=== PATIENT | male | born 1995 | race Caucasian/White ===

== ENCOUNTER 2020-04-28 10:12 | Outpatient (REF) | payer OTHER, SELFPAY ==
--- NOTE | 2020-04-28 10:25 | XR_ITS ---
EXAMINATION: XR SHOULDER, LEFT CLINICAL INFORMATION: Pain. COMPARISON: None TECHNIQUE: Three views of the left shoulder. FINDINGS: No fracture. Glenohumeral and acromioclavicular alignment is anatomic with normal joint space. 5 mm sclerotic focus in the proximal humeral metaphysis. No abnormal soft tissue calcifications. IMPRESSION: No acute osseous abnormality. Nonspecific nonaggressive-appearing 5 mm sclerotic focus in the proximal humeral metaphysis.
== END 2020-04-28 10:13 | disposition home or self-care (01) ==
LOC: HO.XRAY 10:12
PROVIDERS: PCP Internal Medicine; Referring Provider Internal Medicine; Visit Provider Orthopaedic Surgery
DX: M25.312 Other instability, left shoulder (principal); M25.311 Other instability, right shoulder
CPT/HCPCS: 73030

== ENCOUNTER 2021-04-13 10:24 | Outpatient (REF) | payer OTHER, SELFPAY ==
[2021-04-13 10:27] LABS: MANUAL DIFF FLAG NO
[2021-04-13 10:51] LABS: Basophils Percent Auto 0.4 % (0-2); Eosinophils Absolute Auto 0.3 X10*3/uL (0.0-0.4); Eosinophils Percent Auto 4.1 % (0-4); Hemoglobin 14.7 g/dl (14.0-18.0); Imm Gran Abs Auto 0.01 X10*3/uL (0.00-0.03); Imm Gran Pct Auto 0.1 % (0.0-0.4); Lymphocytes Absolute Auto 3.5 X10*3/uL (1.2-4.9); Lymphocytes Percent Auto 47.3 % (20-40); Mean Corpuscular HGB Conc 33.4 g/dl (31.0-36.0); Mean Corpuscular Hemoglobin 30.1 pg (27.0-33.0); Mean Platelet Volume 10.2 fL (9.4-12.4); Monocytes Absolute Auto 0.5 X10*3/uL (0.1-1.2); Monocytes Percent Auto 6.9 % (2-11); Neutrophils Absolute Auto 3.1 X10*3/uL (2.0-8.3); Neutrophils Percent Auto 41.2 % (45-73); Platelet Count 229 X10*3/uL (160-400); Red Blood Count 4.89 X10*6/uL (4.60-5.80); Red Cell Distribution Width 12.2 % (11.0-16.0); White Blood Count 7.5 X10*3/uL (4.8-10.8)
[2021-04-13 11:00] LABS: Appearance Urine CLEAR; Color Urine YELLOW; Glucose Urine UA NEG (NEG); Leukocyte Esterase Urine NEG (NEG); Nitrite Urine NEG (NEG); Urine Blood NEG (NEG); Urine Ketones NEG (NEG); Urine Protein NEG (NEG-TRACE)
[2021-04-13 11:25] LABS: Alanine Aminotransferase 20 U/L (0-40); Albumin Level 4.6 g/dL (3.5-5.0); Alkaline Phosphatase 38 U/L (39-117); Anion Gap 15 (12-20); Aspartate Amino Transferase 17 U/L (5-37); Bilirubin Total 0.6 mg/dL (0.0-1.0); Blood Urea Nitrogen 14 mg/dL (9-16); Calcium 9.7 mg/dL (8.4-10.2); Carbon Dioxide 29 mmol/L (22-29); Chloride 102 mmol/L (96-108); Cholesterol 171 mg/dL; Estimated Glomerular Filt Rate > 60; Glucose Fasting 91 mg/dL (60-99); HDL Cholesterol 50 mg/dL; LDL Cholesterol Calculated 100 mg/dl; Potassium 3.8 mmol/L (3.3-5.1); Sodium 142 mmol/L (135-145); Total Protein 7.4 g/dL (6.5-8.0); Triglycerides 105 mg/dL
== END 2021-04-13 10:25 | disposition home or self-care (01) ==
LOC: HO.LNP 10:24
PROVIDERS: Visit Provider Internal Medicine
DX: Z00.00 Encounter for general adult medical examination without abnormal findings (principal); D72.820 Lymphocytosis (symptomatic)
CPT/HCPCS: 80053; 80061; 81003; 85025

== ENCOUNTER 2022-06-24 11:55 | Outpatient (REF) | payer OTHER, SELFPAY ==
[2022-06-24 13:53] LABS: Blood Urea Nitrogen 11 mg/dL (9-16); Estimated Glomerular Filt Rate > 60
== END 2022-06-24 11:56 | disposition home or self-care (01) ==
LOC: HO.LNP 11:55
PROVIDERS: Visit Provider Internal Medicine
DX: R79.9 Abnormal finding of blood chemistry, unspecified (principal)
CPT/HCPCS: 82565; 84520

== ENCOUNTER 2023-11-08 10:36 | Day surgery (SDC) | payer OTHER, SELFPAY ==
[2023-11-06 14:13] VITALS: BMI 21.0
--- NOTE | 2023-11-07 10:05 | HO.ANESPROP2 ---
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 Father No problems noted. 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 Allergies Allergy/AdvReac Type Severity Reaction Status Date / Time Sulfa (Sulfonamide Allergy Mild HIVES Unverified 04/02/20 19:05 Antibiotics) [SULFA (SULFONAMIDE ANTIBIOTICS)] gluten Allergy gluten Verified 04/28/20 10:35 shellfish derived Allergy unknown Verified 04/28/20 10:35 Omeprazole Allergy Unknown SOB Uncoded 03/01/19 00:00 sulfa Allergy Unknown hives Uncoded 03/01/19 00:00 Home Medications ?Medication ?Instructions ?Recorded ?Confirmed ?Last Taken ?Type budesonide 3 mg 3 mg PO Q OTHER DAY 11/06/23 11/06/23 Unknown History capsule,delayed,extended release omeprazole 20 mg capsule,delayed 20 mg PO DAILY 11/06/23 11/06/23 Unknown History release Exam Height,Weight and Vital Signs: Height 6 ft Weight 70.307 kg Assessment and Plan Assessment Anesthesia Assessment: Chart Reviewed Documented by User: Jame San MD 11/08/23 11:35 [facility] Past Medical History Medical History (Updated 11/06/23 @ 14:02 by Chanel Boogie RN) Eosinophilic esophagitis Asthma Family History Family History (Updated 04/28/20 @ 10:36 by Kendy Jama CMA) Mother No problems noted. Father No problems noted. Family history of problems with anesthesia: No Surgical History Surgical History (Updated 04/28/20 @ 10:35 by Kendy Jama CMA) H/O removal of cyst [place] teeth extracted History of Problems with Anesthesia: No Social History Social History (Updated 04/28/20 @ 10:36 by Kendy Jama CMA) Patient Tobacco Use Status: Former Tobacco user Quit Date: > 1 year Tobacco use type: Cigarette Use of substances other than those prescribed or required for medical reasons: No Are you DNR?: No Advance Directives: No Advance Directives Information Provided: Yes Recently lost weight without trying: No How much weight loss: 2-13 pounds Nutrition Risks: No Nutritional Risk Poor oral hygiene: No 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 Allergies Allergy/AdvReac Type Severity Reaction Status Date / Time Sulfa (Sulfonamide Allergy Mild HIVES Unverified 04/02/20 19:05 Antibiotics) [SULFA (SULFONAMIDE ANTIBIOTICS)] gluten Allergy gluten Verified 04/28/20 10:35 shellfish derived Allergy unknown Verified 04/28/20 10:35 Omeprazole Allergy Unknown SOB Uncoded 03/01/19 00:00 sulfa Allergy Unknown hives Uncoded 03/01/19 00:00 Home Medications ?Medication ?Instructions ?Recorded ?Confirmed ?Last Taken ?Type budesonide 3 mg 3 mg PO Q OTHER DAY 11/06/23 11/06/23 Unknown History capsule,delayed,extended release omeprazole 20 mg capsule,delayed 20 mg PO DAILY 11/06/23 11/06/23 Unknown History release Exam Airway Mallampati Class: I TM Dist: >3cm Neck ROM: Full Loose/Missing/Broken Teeth: No Heart: ok Lungs: ok Assessment and Plan Assessment Anesthesia Assessment: Anesthesia Plan Discussed Final Anesthetic Review Family History of Problems with Anesthesia: No History of Problems with Anesthesia: No NPO: Yes ASA Class: II Final Preanesthetic Review: No Changes in Pt Med Stat, Meds/Allgs Chart Reviewed, Consent Obtained/Reviewed and Anes Risks/Benef Reviewed Patient Risk: Low Procedure Risk: Intermediate Anesthetic Plan Anesthetic Plan: Agree w/ Assess. and Plan and TIVA Disposition: Standard PACU
[2023-11-08 11:03] VITALS: BP 116/83; PULSE 67; RESP 18; TEMP 36.6; O2SAT 98
[2023-11-08] MEDS: Lactated Ringers 1,000 ML 100 ML IVCONT (11:24)
[2023-11-08 11:59] VITALS: BP 115/77; PULSE 79; RESP 18; TEMP 36.2; O2SAT 100
--- NOTE | 2023-11-08 12:08 | PM.OP ---
Brief Operative Note Date of Service: 11/08/23 Pre-op diagnosis: GERD, Hx of EoE Post-op diagnosis: other (Same, Small hiatal hernia) Procedure: EGD with biopsies Surgeon: Darron Weathers MD Anesthesia: MAC Was an Rehab Director used for this Procedure?: No Estimated blood loss (mL): 2.0 Pathology: other (A. Descending duodenum B. Esophagus 20-25cm C. EG Junction at 39cm) Condition: stable Disposition: PACU
[2023-11-08 12:32] VITALS: BP 111/77; PULSE 75; RESP 18; TEMP 36.1; O2SAT 98
--- NOTE | 2023-11-08 12:42 | OP_ITS ---
DATE OF SERVICE: 11/08/2023 SURGEON: Darron Weathers MD INDICATIONS: The patient presents for evaluation of gastroesophageal reflux, history of eosinophilic esophagitis, gluten intolerance, and dysphagia. Full consent has been obtained from him for this, including risks of bleeding and perforation. PREOPERATIVE DIAGNOSIS: POSTOPERATIVE DIAGNOSIS: Gastroesophageal reflux, history of eosinophilic esophagitis, gluten intolerance, dysphagia, rule out celiac disease, small hiatal hernia. PROCEDURE PERFORMED: Esophagogastroduodenoscopy with biopsies. ESTIMATED BLOOD LOSS: COMPLICATIONS: ANESTHESIA: Monitored anesthesia care. ASSISTANTS: SPECIMENS: PREOPERATIVE DIAGNOSES: Gastroesophageal reflux, history of eosinophilic esophagitis, gluten intolerance, dysphagia. DESCRIPTION OF PROCEDURE: The patient was placed in the left lateral decubitus position. The Olympus video gastroscope was passed in the posterior oropharynx and upper esophagus under direct vision. The scope was passed slowly into the distal esophagus. The gastroesophageal junction appeared at 39 cm. The entire esophagus was carefully inspected with insufflation of air. The proximal esophagus appeared essentially normal without any definitive esophageal rings nor any mucosal abnormalities such as fissures. The gastroesophageal junction at 39 cm appeared normal without any sign of esophagitis nor Torres esophagus. The scope easily entered the stomach. There was a relatively minimal hiatal hernia. The scope was advanced to pylorus and the duodenum was cannulated to the descending portion. The duodenum including the bulb appeared normal without mass or ulceration. Duodenal villi and folds appeared normal. Biopsies were obtained in the 2nd and 3rd portions. The scope was withdrawn back to the stomach. The gastric antrum and body appeared normal with good peristalsis. Scope was retroflexed visualizing the proximal stomach carefully, which appeared normal, without any sign of mass or ulceration. Scope was straightened and withdrawn back to the esophagus. Biopsies were obtained at the EG junction at 39 cm. Again, there was no sign of any esophageal stricture nor ring. The scope was withdrawn through the remainder of the esophagus, which appeared grossly normal. There was no evidence of any proximal esophageal rings nor webs. Biopsies were obtained in the proximal esophagus. The scope was withdrawn from the patient. He tolerated the procedure well and was returned to the recovery area in stable condition. IMPRESSION: 1. Minimal hiatal hernia. 2. Rule out celiac disease. 3. History of gastroesophageal reflux. 4. History of eosinophilic esophagitis. PLAN: The results of the biopsies will be checked. At this point, he has been doing well on his regimen of daily omeprazole 20 mg and budesonide 3 mg every other day. He has been advised to continue this, but he could try to decrease the budesonide to just once every 3rd day and see how he does with that in regard to his swallowing. He was advised not to use any aspirin and NSAIDs for at least a week. He will stay on his gluten-free diet even if the duodenal biopsies are normal as he reports that makes him feel better as well. He will be seen in followup later this year as well. MD ELLIOTT Javier/KERRY / [id number] MTDD
== END 2023-11-08 13:07 | disposition home or self-care (01) ==
PROVIDERS: PCP Internal Medicine; Visit Provider Internal Medicine
PROC: (CPT 43239; principal; 2023-11-08 11:40)
DX: K21.9 Gastro-esophageal reflux disease without esophagitis (principal); K20.0 Eosinophilic esophagitis; R13.10 Dysphagia, unspecified; K44.9 Diaphragmatic hernia without obstruction or gangrene; K90.41 Non-celiac gluten sensitivity; Z79.899 Other long term (current) drug therapy; Z87.891 Personal history of nicotine dependence
CPT/HCPCS: 43239; 88305; 88313; J2704